=== PATIENT | male | born 1960 | race Caucasian/White ===

== ENCOUNTER 2020-08-21 01:48 | Emergency (ER) | payer BC, SELFPAY ==
--- NOTE | ~2020-08-21 | CT_ITS ---
EXAMINATION: CT abdomen pelvis wo con DATE: 08/21/2020 03:25 INDICATION: Right-sided abdominal pain TECHNIQUE: Computed tomography (CT) of the abdomen and pelvis was performed without intravenous contr ast. Automated exposure control and iterative reconstruction technique were employed. The dose-length product was 1653.09 mGy-cm. COMPARISON: CT abdomen dated 06/03/2005 FINDINGS: Lung bases are clear. Heart size is normal. Small amount of scattered atherosclerotic coronary artery calcific lesion. No pericardial or pleural effusion. Diffuse hepatic steatosis with focal sparing al elizabeth the gallbladder fossa. Gallbladder, pancreas, bilateral adrenal glands and kidneys are normal. Sp lenomegaly measuring 19.0 cm in craniocaudal length. Bowels including the appendix are normal. Bladde r is normal. No free intraperitoneal gas or fluid. No pathologically enlarged abdominal or pelvic lym phadenopathy. Chronic mild anterior wedging at T10-T12. Mild thoracolumbar spondylosis. Mild left and mild to moderate right hip osteoarthritis. IMPRESSION: 1. No acute intra-abdominal/pelvic process. 2. Diffuse hepatic steatosis. 3. Nonspecific splenomegaly measuring up to 19 cm. Reviewed, dictated and finalized at location A. [facility]
[2020-08-21 01:48] VITALS: BP 170/79; PULSE 87; RESP 20; TEMP 36.9; O2SAT 97
--- NOTE | 2020-08-21 02:04 | ED.ABDPAIN ---
HPI - Abdominal Pain General Chief Complaint: Urogenital-Male Stated Complaint: Back pain Time Seen by Provider: 08/21/20 02:05 Source: patient Mode of arrival: ambulatory Limitations: no limitations History of Present Illness HPI narrative: 59-year-old man with history of hypertension comes in today complaining of 4 hours of right flank pain. Patient states that he has also had some vomiting and nausea. He denies fever, hematuria, dysuria, cough or cold symptoms, chest pain, diarrhea and prior similar symptoms. MD elicited complaint: flank pain Pertinent past history: none Onset (ago): hour(s) (4) Pain Consistency: constant Location: R flank Severity: severe Quality: sharp Radiation: none Migration to: no migration Exacerbating factors: nothing Relieving factors: nothing Associated symptoms: nausea and vomiting Related Data Home Medications Medication Instructions Recorded Confirmed amlodipine 5 mg PO DAILY 08/21/20 08/21/20 diclofenac sodium 50 mg PO DAILY 08/21/20 08/21/20 lisinopril-hydrochlorothiazide 1 tablet PO DAILY 08/21/20 08/21/20 Allergies Allergy/AdvReac Type Severity Reaction Status Date / Time Penicillins Allergy Unknown Verified 08/21/20 02:04 Review of Systems Constitutional: Constitutional: Denies chills and Denies fever(s) Eyes: Eyes: Denies change in vision and Denies photophobia ENT: Denies nasal congestion and Denies sore throat Cardiovascular: Cardiovascular: Denies chest pain and Denies radiating jaw, neck or arm pain Respiratory: Respiratory: Denies cough and Denies dyspnea Gastrointestinal: Gastrointestinal: Reports abdominal pain, Denies diarrhea, Reports nausea and Reports vomiting Genitourinary: Genitourinary: Denies hematuria, Denies dysuria and Denies urinary frequency Musculoskeletal: Musculoskeletal: Denies arthralgias and Denies joint swelling Integumentary/Breasts: Skin/Breast: Denies pruritus, Denies erythema and Denies rash Neurologic: Denies vertigo, Denies dizziness and Denies syncope Hematologic/Lymphatic: Hematologic/Lymphatic: Denies easy bleeding and Denies easy bruising Allergic/Immunologic: Allergic/Immunologic: Denies lip swelling and Denies throat swelling PMFSH Past Medical History Medical History Hypertension Family History Family History (Updated 06/28/18 @ 00:00 by CONVUSER Ariella) Mother Family history of coronary artery disease Family history of type 2 diabetes mellitus Hypertension Father Hypertension Family history of type 2 diabetes mellitus Family history of coronary artery disease Social History Social History Smoking status: Former smoker Exam Const: General: alert Nutritional Appearance: obese Orientation/consciousness: patient oriented x3 Limitations: no limitations Other: moderate acute distress. Eyes: Conjunctivae: conjunctivae normal Pupils: Equal, round and reactive pupils present EOM: EOMs intact bilaterally Resp: Effort & Inspection: normal respiratory effort and not labored Auscultation: clear to auscultation bilaterally, no rales, no rhonchi and no wheezes Cardio: Rate: regular rate Rhythm: regular rhythm Heart sounds: no murmurs GI: GI Palp: Yes Soft to palpation, Yes Tenderness to palpation present (GI) ( right flank) and No Guarding due to palpation present (GI) Auscultation: normal bowel sounds Skin: General skin exam: normal color, no jaundice and no pallor Rashes: no rashes Neuro: General: patient oriented x3, moves all extremities, no focal motor deficits and CN's II-XI intact bilaterally Speech: normal speech Gait exam (Neuro): Normal gait present Extrem: General: normal to inspection and no clubbing, cyanosis or edema Psych: Appearance: grossly normal and well kempt Mental Status: mental status grossly normal Affect: normal affect Attitude: cooperative Thought content: Yes
[2020-08-21] MEDS: SODIUM CHLORIDE 0.9% IV 1,000 ML 999 ML IV CONT (02:20)
[2020-08-21] MEDS: ONDANSETRON INJ 4 MG/2 ML VIAL IV PUSH (02:21)
[2020-08-21] MEDS: MORPHINE SULFATE (*CRX) 4 MG/ML INJ IV PUSH (02:25)
[2020-08-21 02:26] VITALS: BP 145/60; PULSE 79; RESP 20; O2SAT 97
[2020-08-21 02:27] LABS: Basophils Absolute Auto 0.01 K/mm3 (0.00-0.10); Basophils Percent Auto 0.2 % (0.0-1.0); Eosinophils Absolute Auto 0.06 K/mm3 (0.02-0.50); Eosinophils Percent Auto 1.3 % (1.0-6.0); Hematocrit 39.4 % (40.0-54.0); Hemoglobin 13.8 g/dL (14.0-18.0); Immature Granulocyte Absolute 0.03 K/mm3 (0.00-0.00); Immature Granulocyte Percent A 0.7 % (0.0-0.0); Immature Platelet Fraction Pct 2.7 % (1.0-7.0); Lymphocytes Absolute Auto 1.02 K/mm3 (1.10-4.50); Lymphocytes Percent Auto 22.5 % (18.0-42.0); Mean Corpuscular Hemoglobin 32.2 pg (27.0-31.0); Mean Corpuscular Volume 91.8 fL (78.0-102.0); Mean Platelet Volume 9.9 fl (8.7-11.0); Monocytes Absolute Auto 0.25 K/mm3 (0.10-0.90); Monocytes Percent Auto 5.5 % (2.0-11.0); Neutrophils Absolute Auto 3.2 K/mm3 (1.7-7.2); Neutrophils Percent Auto 69.8 % (50.0-70.0); Platelet Count Result 100 K/mm3 (150-420); Red Blood Count 4.29 M/mm3 (4.70-6.10); White Blood Count 4.5 K/mm3 (4.8-10.8)
[2020-08-21 02:28] LABS: Add Urine Microscopic? YES; Appearance Urine Clear (Clear); Bilirubin Urine Negative (Negative); Blood Urine Negative (Negative); Color Urine Yellow (Yellow); Glucose Urine UA 3+ (Negative); Ketones Urine Negative (Negative); Leukocyte Esterase Ur Negative LEU/UL (Negative); Nitrate Urine Negative (Negative); Protein Urine Negative (Negative); Specific Grav Ur 1.025 (1.010-1.020); Urobilinogen Urine 0.2 mg/dL (0.2-1.0); pH Urine 5.5 (5.0-8.0)
[2020-08-21 02:34] LABS: Bacteria Urine None seen /hpf; RBC Urine 0-2 /hpf (0-2); Squamous Epithelial Cell Urine Occasional /hpf (Few); WBC Urine 0-3 /hpf (0-3)
[2020-08-21 02:41] LABS: Alanine Aminotransferase 55 U/L (16-63); Albumin Level 3.5 g/dL (3.4-5.0); Alkaline Phosphatase 77 U/L (46-116); Anion Gap 9 mmol/L (8-16); Aspartate Amino Transferase 26 U/L (15-37); Bilirubin,Total 1.3 mg/dL (0.00-1.00); Blood Urea Nitrogen 12 mg/dL (7-18); Calcium 8.1 mg/dL (8.5-10.1); Carbon Dioxide 27 mmol/L (21-32); Chloride 103 mmol/L (98-108); Estimated CRCL calculation 91 ml/min; Estimated Glomerular Filt Rate > 60; Glucose 368 mg/dL (70-99); Lipase 159 U/L (73-393); Osmolality Calculated 302 mOsm/kg (285-295); Potassium 4.3 mmol/L (3.5-5.1); Sodium 139 mmol/L (136-145); Total Protein 6.6 g/dL (6.4-8.2)
[2020-08-21 02:43] LABS: INR 1.1; Partial Thromboplastin Time 25.1 SEC (23.90-30.70); Prothrombin Time 11.4 Seconds (9.50-12.10)
[2020-08-21 04:41] VITALS: PULSE 79; RESP 20; TEMP 37.1; O2SAT 97
== END 2020-08-21 04:48 | disposition home or self-care (01) ==
PROVIDERS: Emergency Provider Emergency Medicine
DX: R10.11 Right upper quadrant pain (principal); E11.9 Type 2 diabetes mellitus without complications
CPT/HCPCS: 36415; 74176; 80053; 81001; 83036; 83690; 85025; 85055; 85610; 85730; 96361; 96374; 96375; 99283; 99284; J2270; J2405; J7030

== ENCOUNTER 2022-03-15 09:00 | Outpatient (RCR) | payer BC, SELFPAY ==
--- NOTE | 2022-03-15 10:26 | PTOPEVAL1 ---
Assessment and note entered by Melva Tony DPT Evaluation Information Assessment Status Evaluation Diagnosis BPPV Onset 10/25/2021 Subjective Information Pt reports he had an ear infection in his L ear earler this year and has had associated dizziness and loss of balance since. He reports it started getting worse over time. 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 He has been falling a lot recently, 2-3 times a week, and he reports most difficulty when turning to the left, walking, or moving too fast. Feels like he walks wobbly, and has been told by co-workers that he looks unsteady . He reports that when he gets in and out of bed at night and in the morning he reports a lot of dizziness. Reports a fall recently when reaching over to his L. He reports some nausea. He reports he had frequent ear infections as a child. Denies frequent allergies. Takes BP medications regularly . Denies headaches. He reports some hearing issues but doesn't feel this is related. He reports some sound sensitivity. Notes decreased steadiness in the dark. Denies head trauma. Pt likes to hike. Reported Pain Level Pain Score 0: Self Report Assessment PT Clinical Summary Pt presents to physical therapy with symptoms of disequilibrium and demonstrates decreased central oculomotor receptive processing, impaired static and dynamic balance, impaired somatosensory integration, impaired cerebellar adaptive coordination, and peripheral motion sensitivity. These deficits increase his risk for falls and make it more difficult for him to walk, hike, and work safely and efficiently. He was provided with an HEP focused on vestibulo-ocular and saccadic intervetnions as well as habituations to improve symptoms with activities. He will benefit from skilled PT to improve the aforementioned impairments, facilitate symptom relief, and return to functional and recreational activities. Plan of Care Interventions Gait Training,Neuro Re-education,Therapeutic Activities,Therapeutic Exercise PT Services Indicated Yes Treatment Frequency and 1-2x week for 8 visits Duration These treatments will address the objective and functional deficits as defined above. The patient will be advanced safely and appropriately in order for the patient to progress towards his/her prior level of function. Additional exercises will be introduced and as well as a comprehensive home exercise program upon discharg
== END 2022-03-23 13:41 | disposition home or self-care (01) ==
LOC: CHSPT 09:00
PROVIDERS: Visit Provider Internal Medicine
DX: H81.12 Benign paroxysmal vertigo, left ear (principal)
CPT/HCPCS: 97112; 97162

== ENCOUNTER 2024-05-08 07:54 | Outpatient (RCR) | payer BC, SELFPAY ==
--- NOTE | 2024-05-08 09:01 | OPREHPOC ---
Outpatient Therapy Plan of Care This is a Multidisciplinary Plan of Care that may contain components documented by all disciplines (PT, OT, and ST.) PT Problem 1 PT Problem #1 Knowledge Deficit PT Goal 1 Goal / Goal Update The patient will be independent in a home exercise program. Target Visit 4 PT Problem 2 PT Problem #2 Pain PT Goal 1 Goal / Goal Update The patient will report no greater than 2/10 left shoulder pain with daily activities. Target Visit 12 PT Problem 3 PT Problem #3 Impaired Range of Motion PT Goal 1 Goal / Goal Update The patient will demonstrate pain free left shoulder abduction AROM to 130 degrees to improve reaching ability. Target Visit 12 PT Problem 4 PT Problem #4 Impaired Strength PT Goal 1 Goal / Goal Update The patient will demonstrate 4/5 left shoulder strength to improve lifting ability. Target Visit 12 PT Problem 5 PT Problem #5 Impaired Functional Mobil PT Goal 1 Goal / Goal Update The patient will demonstrate less than 15% self perceived disability per the [employer] questionnaire. Target Visit 12
--- NOTE | 2024-05-08 09:02 | PTOPEVAL1 ---
Assessment and note entered by Jenna Khalil, PT Evaluation Information Assessment Status Evaluation ICD-10 Condition Codes (PT) Cervicalgia M54.2,M25.512 Onset 12/26/23 Subjective Information Dilip Beckham reports he started having pain in the left upper arm in December 2023. He reports he would pull on a post to help decrease the pain. Then two weeks ago, he started having pain in the left neck that became unbearable and made it hard to sleep. He notes difficulty picking up items from lower down. He also has difficulty bending due to vertigo. He has pain with using the left arm as well. He went to the doctor and had x-rays of the shoulder and neck. He was told he has bursitis and was given steroids for 5 days. The steroids did not help his pain. Reported Pain Level Pain Score 5: Self Report Assessment PT Clinical Summary Dilip Beckham presents with left shoulder and neck pain that started in December 2023 for unknown reasons. He is having difficulty with reaching, lifting, and sleeping. He objectively demonstrates decreased and painful left shoulder AROM, decreased cervical AROM, impaired upper trunk posture, tenderness at the left deltoid insertion and upper trapezius, decreased left shoulder strength, and positive special tests consistent with shoulder impingement and tendonitis. He will benefit from skilled PT to address these limitations. Plan of Care Interventions Electrical Stimulation,Hot Pack/Cold Pack,Manual Therapy,Neuro Re-education,Patient/Caregiver Educati,Therapeutic Activities,Therapeutic Exercise PT Services Indicated Yes Treatment Frequency and 3 times a week for 12 visits Duration These treatments will address the objective and functional deficits as defined above. The patient will be advanced safely and appropriately in order for the patient to progress towards his/her prior level of function. Additional exercises will be introduced and as well as a comprehensive home exercise program upon discharge, if needed, ?to ensure carryover of functional gains achieved in the clinic. This treatment plan has been reviewed and agreement upon by the patient.
--- NOTE | 2024-08-09 10:22 | PCPTNOTE ---
08/09/24: Pt completed 9 skilled PT visits with the last occurring on 05/31/24. He has not called to schedule more and is discharged. -Jenna Khalil, PT
== END 2024-08-06 23:59 | disposition home or self-care (01) ==
LOC: CHSPT 07:54
DX: M54.2 Cervicalgia (principal); M25.512 Pain in left shoulder
CPT/HCPCS: 97014; 97110; 97140; 97161; G0283